=== PATIENT | female | born 1945 | race Caucasian/White ===

== ENCOUNTER → 2016-08-30 | Outpatient (CLI) | payer MEDICARE, OTHER ==
[~2016-08-30] MED LIST: AMIT25TA9 PO; ASPI-557 PO; IOHEXOL 300 MG/ML 75ml INJECTION ONE; LEVO112T7 PO; LOSA1TAB95 PO; MULT-37 PO; NIVO100V IV; NORMAL SALINE 100 ML ONE
--- NOTE | 2016-08-30 15:05 | DI ---
Indication: ITS.REASON: R93 Abnormal findings on diagnostic imaging of u PROCEDURE: CT NECK W/CONTRAST: Encounter: Initial Comparison: Neck CT dated July 08, 2016 there is a reportedly abnormal PET scan which I do not have the images or report from. And CT neck dated April 13, 2015 Technique: Axial CT images were performed through the neck with intravenous contrast. Coronal and sagittal two-dimensional reformats Automated Exposure Control and Iterative Reconstruction dose reducing techniques were utilized. Contrast: Omnipaque 300 75 mL Findings: Surgical clips in the neck. The submandibular glands appear normal and symmetric. The parotid glands appear normal. No mucosal based mass lesion seen. Metallic artifact from prior dental restorations. No pathologically enlarged or enhancing cervical lymphadenopathy. There are scattered level 1B and 2A nodes on the right measuring up to 6 mm short axis. There is right apical pleural thickening or scarring which appears stable dating back to 2014. Postoperative changes in the right posterior fossa noted. Impression: No pathologically enlarged or enhancing cervical lymphadenopathy. Comparison with the outside PET scan images and report with be helpful for further evaluation of the reported abnormality. .
== END ==
LOC: IMA 12:57
PROVIDERS: ATTEND Internal Medicine Hematology & Oncology
DX: R93.0 Abnormal findings on diagnostic imaging of skull and head, not elsewhere classified (principal); Z98.890 Other specified postprocedural states
CPT/HCPCS: 70491; J7050; Q9967